=== PATIENT | female | born 1940 | race Caucasian/White ===

== ENCOUNTER 2022-04-04 12:59 | Emergency (ER) | payer OTHER, MEDICAID ==
[~2022-04-04] VITALS: Ht 167.6 cm; Wt 55.3 kg
[2022-04-04 13:15] VITALS: BP_SYST 110
[2022-04-04] MEDS ORDERED: KETOROLAC TROMETHAMINE 30 MG VIAL IM ONE (18:45)
[2022-04-04] MEDS ORDERED: IBUPROFEN 600 MG TABLET ONE (19:00)
[2022-04-04] MEDS ORDERED: IBUPROFEN 600 MG TABLET PO ONE (19:00)
[2022-04-04 22:43] VITALS: BP_SYST 126
== END 2022-04-04 22:43 | disposition home or self-care (01) ==
LOC: SED 12:59
DX: S09.90XA Unspecified injury of head, initial encounter (principal); S79.911A Unspecified injury of right hip, initial encounter; M54.50 Low back pain, unspecified; R10.2 Pelvic and perineal pain; M25.551 Pain in right hip; Z79.899 Other long term (current) drug therapy; W18.30XA Fall on same level, unspecified, initial encounter; Y93.89 Activity, other specified; Y92.89 Other specified places as the place of occurrence of the external cause; Y99.8 Other external cause status
CPT/HCPCS: 99284; 70450; 73502; 76376; 72170; J1885